=== PATIENT | male | born 1925 | race Caucasian/White ===

== ENCOUNTER 2016-11-17 14:24 | Inpatient (IN) | payer MEDICARE, OTHER ==
[~2016-11-17] VITALS: Ht 172.7 cm; Wt 101.0 kg
[~2016-11-17 14:24] MED LIST: ASPIRIN 32325 MG/TAB PO; ASPIRIN 81M81 MG/TA2 PO; BETIMOL 5 ML5 ML OU; CALCIUM 600MG+D1 TAB PO; COENZYME Q-1050 MG PO; EPA FISH OIL1000 MG PO; HCTZ/LISINOPRIL1 TA1 PO; LEVOTHROID0.05 MG PO; LOPRESSOR 550 MG/TAB PO; PLAVIX 75MG TAB75 MG PO; PRILOSEC 20MG20 MG PO; QUALITY CHOICE600 M1 PO; SYNTHROID0.05 MG/TA PO; THE MEDICINE S200 M2 PO; VITAMIN C BUFF500 MG PO; VITAMIN E 400 U4001 PO; VITAMIN E1000 U/CAP PO; VITAMINC1000TA PO; ZESTRIL40 MG PO
[2016-11-17] MEDS ORDERED: COENZYME Q-10100 M1 PO (15:53)
[2016-11-17 16:44] VITALS: BP 139/60; PULSE 70; TEMP 97.9
[2016-11-17 19:54] VITALS: BP 137/78; PULSE 71; TEMP 97.9
[2016-11-18 00:15] VITALS: BP 116/57; PULSE 70; TEMP 98.6
[2016-11-18 04:28] VITALS: BP 108/58; PULSE 55; TEMP 97.6
[2016-11-18 08:29] VITALS: BP 134/78; PULSE 60; TEMP 98.4
[2016-11-18 11:57] LABS: CREATININE, serum 1.71 mg/dL (0.66-1.25); POTASSIUM 4.3 mmol/L (3.4-5.0)
[2016-11-18 12:10] VITALS: BP 139/52; PULSE 72
[2016-11-18 15:42] VITALS: BP 143/56; PULSE 64
[2016-11-18 20:42] VITALS: BP 134/58; PULSE 71; TEMP 97.7
[2016-11-19 01:26] VITALS: BP 126/51; PULSE 99; TEMP 98
[2016-11-19 03:43] VITALS: BP 134/58; PULSE 59; TEMP 98.7
[2016-11-19 08:08] LABS: CALCIUM 9.4 mg/dL (8.4-10.2); CREATININE, serum 1.73 mg/dL (0.66-1.25)
[2016-11-19 08:11] VITALS: BP 140/58; PULSE 67; TEMP 97.4
[2016-11-19 12:00] VITALS: BP 134/58; PULSE 72; TEMP 97.4
[2016-11-19] MEDS ORDERED: ZESTRIL 10MG10 MG PO (13:16)
[2016-11-19] MEDS ORDERED: LASIX 20MG TABL20 MG PO (13:17)
[2016-11-19] MEDS ORDERED: KLOR-CON SPRIN10 MEQ PO (13:23)
== END 2016-11-19 14:50 | disposition home health service (06) | DRG 292 ==
LOC: MEDICAL 14:24
PROVIDERS: Family Medicine; Internal Medicine Cardiovascular Disease
DX: I11.0 Hypertensive heart disease with heart failure (principal); N17.9 Acute kidney failure, unspecified; I50.33 Acute on chronic diastolic (congestive) heart failure; E03.9 Hypothyroidism, unspecified; Z95.5 Presence of coronary angioplasty implant and graft
CPT/HCPCS: 99223-AI; 99232-AI; 99239; J1644; J1940

== ENCOUNTER 2016-12-29 10:54 | Outpatient (CLI) | payer MEDICARE, OTHER ==
[~2016-12-29] VITALS: Ht 172.8 cm; Wt 88.2 kg
[2016-12-29] VITALS (12 sets, daily range): BP systolic 106–154; BP diastolic 49–77; PULSE 60–76; TEMP 97.1–97.9
[~2016-12-29 10:54] MED LIST changes: +COENZYME Q-10100 M1 PO; +KLOR-CON SPRIN10 MEQ PO; +LASIX 20MG TABL20 MG PO; +ZESTRIL 10MG10 MG PO
[2016-12-29] MEDS ORDERED: PRINIVIL10 MG PO (11:48)
[2016-12-29 12:05] LABS: POTASSIUM 5.1 mmol/L (3.4-5.0)
[2016-12-29 12:08] LABS: INR 1.1 (0.8-3.0); PROTHROMBIN TIME 12.4 SECONDS (9.7-12.8)
[2016-12-29 12:39] LABS: THYROID STIMULATING HORMONE 3.02 uIU/mL (0.465-4.680)
[2016-12-29] MEDS ORDERED: PACERONE400 MG PO (15:05)
[2016-12-29] MEDS ORDERED: PACERONE200 MG PO ×2 (15:06→15:08)
== END 2016-12-29 16:45 | disposition home or self-care (01) ==
LOC: EUO 10:54 → COL.RAD 11:45 → EUO 16:45
PROVIDERS: Internal Medicine Interventional Cardiology
DX: I48.91 Unspecified atrial fibrillation (principal); I08.0 Rheumatic disorders of both mitral and aortic valves; I25.10 Atherosclerotic heart disease of native coronary artery without angina pectoris; Z95.0 Presence of cardiac pacemaker
CPT/HCPCS: J2250; J3010; J7030